=== PATIENT | female | born 1995 | race Hispanic/Latino ===

== ENCOUNTER 2024-08-20 05:06 | Emergency (ER) | payer SELFPAY ==
[~2024-08-20] VITALS: Ht 162.6 cm; Wt 110.4 kg
[~2024-08-20 05:06] MED LIST: FERS325 PO; IBUP-2088 PO
[2024-08-20 05:38] VITALS: TEMP 97.9
--- NOTE | 2024-08-20 05:40 | ERN ---
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 Patient reports period- type cramping, lower pelvis, mold, bilateral, non-radiating. Patient reports some light pink spotting. No other symptoms. No discharge, no flank pains, no fevers, no GI symptoms. No medical or surgical history Allergies: Coded Allergies: No Known Drug Allergies (Unverified Allergy, Unknown, 03/19/17) Home Meds Reported Medications Ferrous Sulfate (Ferrous Sulfate) 325 Mg Ectab, 325 MG PO BID, #60 TAB.EC 09/20/21 Ibuprofen (Motrin/Advil) 600 Mg Tab, 600 MG PO Q8H, #25 TAB 09/20/21 Past Medical History Past Medical History: No Pertinent History Past Surgical History: None Female( History) LMP: Jul 20, 2024 : 2 Para: 1 Aborts: 0 ROS Dictation CONSTITUTIONAL: No chills, no fever, no weakness, no diaphoresis, no malaise. HEAD/FACE: No signs of trauma. EENT: No eye pain, no blurred vision, no tearing, no double vision, no ear pain, no ear discharge, no nose pain, no nasal congestion, no throat pain, no throat swelling, no mouth pain. RESPIRATORY: No cough, no orthopnea, no SOB, no stridor, no wheezing. CARDIOVASCULAR: No chest pain, no edema, no palpitations, no syncope. GASTROINTESTINAL/ABDOMINAL: No abdominal pain, no constipation, no diarrhea, no nausea, no vomiting. GENITOURINARY: Vaginal bleeding, pelvic cramping MUSCULOSKELETAL: No back pain, no gout, no joint pain, no joint swelling, no muscle pain, no muscle stiffness, no neck pain. INTEGUMENTARY: No change in color, no change in hair/nails, no dryness, no lesion, no lumps, no rash. NEUROLOGICAL/PSYCH: No anxiety, not depressed, no emotional problem, no headache, no numbness, no pre-existing deficit, no history of seizures, no tremors, no weakness. HEMATOLOGIC/LYMPHATIC: Not anemic, no history of blood clots, no apparent bleeding, no bruising, glands not swollen. All Systems Negative, Except as Noted. Physical Exam Physical Exam Dictation VITAL SIGNS: Reviewed. GENERAL APPEARANCE: Alert, oriented x3, no acute distress, obese. HEAD AND FACE: Non-traumatic. EYES: PERRL, pink conjunctivas, eyelid no trauma, anterior chamber clear. EARS: Pinnas intact and no signs of trauma or erythema. Ear canals clear and no discharge. TMs no erythema. NOSE: No discharge, no bleeding. OROPHARYNX: Mouth normal, teeth no caries, tongue pink. Pharynx clear, no erythema. Tonsils no exudates, no abscesses noted. Mucous membrane moist. NECK: Supple, non-tender, no thyromegaly, no masses, no JVD, no bruits. BREAST: Deferred. CHEST: No tenderness, no crepitus, no paradoxical movement, no retractions. LUNGS: Clear, well-ventilated, symmetric, no rales, no wheezing, no rhonchi, no stridor, good breath sounds bilaterally. HEART: Regular rate, regular rhythm, no murmur, no gallops. VASCULAR: No peripheral edema. ABDOMEN: Soft, positive bowel sounds, nondistended, no guarding, nontender, no rebound, no masses no hepatomegaly, no splenomegaly, no Tan's sign, no hernias. RECTAL: Deferred. GENITAL: Deferred. NEUROLOGICAL: Normal speech, gross motor function intact, gross sensory function intact. MUSCULOSKELETAL: Neck nontender, full range of motion, back nontender, full range of motion. EXTREMITIES: Nontender, full range of motion. SKIN: Color pink, dry, no turgor, no rash, no lacerations, no abrasions, no contusions. LYMPHATICS: Deferred. Results Laboratory and Microbiology Lab and Micro Result Laboratory Tests Test 08/20/24 05:19 08/20/24 05:35 Urine Color LIGHT-YELLOW (YELLOW) Urine Appearance CLEAR (CLEAR) Urine pH 6.5 (5.0-8.0) Urine Specific [place] 1.028 (1.001-1.031) Urine Protein NEGATIVE mg/dL (NEGATIVE) Urine Glucose (UA) NEGATIVE mg/dL (NEGATIVE) Urine Ketones 5 mg/dL (NEGATIVE) H Urine Occult Blood LARGE (NEGATIVE) H Urine Nitrate NEGATIVE (NEGATIVE) Urine Bilirubin NEGATIVE mg/dL (NEGATIVE) Urine Urobilinogen 0.2 mg/dL (0.2-1.0) Urine Leukocyte Esterase 25 Yuki/uL (NEGATIVE) H Urine RBC TNTC /HPF (0-1) H Urine WBC 6-10 /HPF (0-1) H Urine Squamous Epithelial Cells FEW /HPF (0-2) Urine Bacteria FEW /HPF (None Seen) Urine HCG, Qualitative NEGATIVE (NEGATIVE) White Blood Count 12.6 K/uL (4.8-10.8) H Red Blood Count 5.39 MIL/uL (4.00-5.50) Hemoglobin 14.0 g/dL (12.0-16.0) Hematocrit 43.3 % (36-48) Mean Corpuscular Volume 80.3 fL (79-99) Mean Corpuscular Hemoglobin 26.0 pg (27.0-33.0) L Mean Corpuscular Hemoglobin Concent 32.3 g/dL (32.0-36.0) Red Cell Distribution Width 16.3 % (11.0-15.5) H Platelet Count 326 K/uL (130-400) Mean Platelet Volume 10.7 fL (7.5-10.5) H Immature Granulocyte % (Auto) 0.6 % (0-1) Neutrophils (%) (Auto) 70.6 % (40.0-77.0) Lymphocytes (%) (Auto) 20.2 % (21.0-51.0) L Monocytes (%) (Auto) 6.2 % (3.0-13.0) Eosinophils (%) (Auto) 1.8 % (0.0-8.0) Basophils (%) (Auto) 0.6 % (0.0-5.0) Neutrophils # (Auto) 8.9 K/uL (1.8-7.7) H Lymphocytes # (Auto) 2.5 K/uL (1.0-4.8) Monocytes # (Auto) 0.8 K/uL (0.1-1.0) Eosinophils # (Auto) 0.22 K/uL (0.00-0.70) Basophils # (Auto) 0.08 K/uL (0.00-0.20) Absolute Immature Granulocyte (auto 0.07 K/uL (0-1) Nucleated Red Blood Cells 0.0 % (0.0-0.19) Sodium Level 142 mmol/L (136-145) Potassium Level 3.6 mmol/L (3.5-5.1) Chloride Level 106 mmol/L (101-111) Carbon Dioxide Level 25 mmol/L (21-32) Blood Urea Nitrogen 11 mg/dL (7-18) Creatinine 0.5 mg/dL (0.5-1.0) Glomerular Filtration Rate Calc 131 mL/min (>90) Random Glucose 110 mg/dL (70-105) H Total Calcium 8.3 mg/dL (8.5-10.1) L Human Chorionic Gonadotropin, Quant 12 mIU/mL (0-5) H MDM CC: Vaginal bleeding pelvic cramping in her early Historian: Patient Comorbidities: None Limitations by social determinants: None Differential diagnosis: Physiologic bleeding, early , ectopic , miscarriage Vital signs are stable Labs show no leukocytosis no anemia. Chemistry panel stable. HCG is 12. Ultrasound shows no viable IUP Unclear what is causing the symptoms, I have very low suspicion for ruptured ectopic at this time. Patient was stable. Nontoxic. We will DC. Recommend an hCG follow up/repeat in 72 hours. Patient may not be able to coordinate outpatient medicare insurance specialist follow up in that time, so patient will return to the emergency department a repeat the lab in a couple of days. ED Course Orders Procedure Category Date Status Time Cbc With Differential LAB 08/20/24 Complete 05:08 Basic Metabolic Panel LAB 08/20/24 Complete 05:08 ,Urine Test LAB 08/20/24 Complete 05:08 Urinalysis Profile LAB 08/20/24 Complete 05:08 Us Ob <14 Weeks US 08/20/24 Taken 05:17 Hcg,Quantitative LAB 08/20/24 Complete 05:35 Culture Urine YOUSUF 08/20/24 In Process 05:57 Vital Signs Date Time Temp Pulse Resp B/P (MAP) Pulse Ox O2 Delivery O2 Flow Rate FiO2 08/20/24 05:38 97.9 81 16 129/86 98 Room Air* 0 21 08/20/24 05:08 98.6 88 18 154/107 99 Room Air DX & DISP Disposition: Discharge Departure Impression: Primary Impression: Bleeding in early Condition: Stable Additional Instructions: You are likely having a very early or a miscarriage. Your vital signs have been stable in the ER. Your blood work (CBC, BMP, urinalysis) shows blunting of urine but is otherwise unremarkable. Your beta hCG ( hormone level) is 12. As we discussed, this study will need to be repeated in 72 hours or so. You can return to the emergency department or follow up with an medicare insurance specialist for this study. As we discussed, there is a very small possibility that you are having an ectopic (tubal) . You develop any severe pain, dizziness lightheadedness, persistent vomiting, or any other concerning symptoms please immediately return to the emergency department for re-evaluation. Referrals: SONIA HICKMAN Jr., MD (PCP) MANUEL NASH DO Aug 20, 2024 05:40
[2024-08-20 05:47] LABS: APPEARANCE,URINE CLEAR (CLEAR); BILIRUBIN,URINE NEGATIVE (NEGATIVE); COLOR,URINE LIGHT-YELLOW (YELLOW); GLUCOSE, URINE (UA) NEGATIVE (NEGATIVE); KETONES,URINE 5 mg/dL (NEGATIVE); LEUKOCYTE ESTERASE ,URINE 25 Leu/uL (NEGATIVE); NITRATE,URINE NEGATIVE (NEGATIVE); OCCULT BLOOD,URINE LARGE (NEGATIVE); PH,URINE 6.5 (5.0-8.0); PROTEIN,URINE NEGATIVE (NEGATIVE); UROBILINOGEN,URINE 0.2 mg/dL (0.2-1.0)
[2024-08-20 05:49] LABS: BASOPHILS # (AUTO) 0.08 K/uL (0.00-0.20); BASOPHILS % (AUTO) 0.6 % (0.0-5.0); EOSINOPHILS # (AUTO) 0.22 K/uL (0.00-0.70); EOSINOPHILS % (AUTO) 1.8 % (0.0-8.0); HEMATOCRIT 43.3 % (36-48); IMMATURE GRANULOCYTE ABSOLUTE 0.07 K/uL (0-1); LYMPHOCYTES # (AUTO) 2.5 K/uL (1.0-4.8); LYMPHOCYTES % (AUTO) 20.2 % (21.0-51.0); MEAN CORPUSCULAR HGB CONC 32.3 g/dL (32.0-36.0); MEAN CORPUSCULAR VOLUME 80.3 fL (79-99); MONOCYTES # (AUTO) 0.8 K/uL (0.1-1.0); MONOCYTES % (AUTO) 6.2 % (3.0-13.0); NEUTROPHILS # (AUTO) 8.9 K/uL (1.8-7.7); NEUTROPHILS % (AUTO) 70.6 % (40.0-77.0); PLATELET COUNT (AUTO) 326 K/uL (130-400); RED BLOOD CELL COUNT(AUTO) 5.39 MIL/uL (4.00-5.50); RED CELL DISTRIBUTION WIDTH 16.3 % (11.0-15.5); WHITE BLOOD COUNT (AUTO) 12.6 K/uL (4.8-10.8)
[2024-08-20 05:50] LABS: HCG,QUALITATIVE URINE NEGATIVE (NEGATIVE)
[2024-08-20 05:55] LABS: ADD UA MICROSCOPIC YES; BACTERIA,URINE FEW /HPF (None Seen); MUCUS,URINE RARE LPF (None Seen); RBC,URINE TNTC /HPF (0-1); SQUAMOUS EPITHELIAL CELL,UR FEW /HPF (0-2)
[2024-08-20 06:05] LABS: CREATININE 0.5 mg/dL (0.5-1.0); POTASSIUM 3.6 mmol/L (3.5-5.1)
[2024-08-20 06:40] VITALS: BP 121/82; PULSE 75; RESP 14; O2SAT 98
--- NOTE | 2024-08-20 08:59 | HMCIMG ---
US OB <14 WEEKS HISTORY: Vaginal bleeding COMPARISON: None TECHNIQUE: Obstetrical ultrasound study was performed. FINDINGS: The uterus measures 9.3 x 5.2 x 4.6 centimeter. Right ovary measures 2.7 x 2 x 2.6 centimeter. Left ovary measures 2.1 x 1.8 x 1.9 centimeter. No evidence of intrauterine gestational sac is seen. In a patient with positive test, differential diagnosis would include early versus ectopic versus missed . Beta-hCG correlation is recommended. No fluid is seen in the cul-de-sac. IMPRESSION: 1. No evidence of intrauterine gestational sac is seen. In a patient with positive test, differential diagnosis would include early versus ectopic versus missed . Beta-hCG correlation is recommended.
== END 2024-08-20 06:51 | disposition home or self-care (01) ==
LOC: EDH 05:06
DX: O20.9 Hemorrhage in early pregnancy, unspecified (principal); O26.891 Other specified pregnancy related conditions, first trimester; R10.2 Pelvic and perineal pain
CPT/HCPCS: 36415; 76801; 80048; 81001; 81025; 84702; 85025; 87086; 99284